=== PATIENT | male | born 1980 | race Caucasian/White ===

== ENCOUNTER 2025-04-16 15:46 | Outpatient (AMB) | payer OTHER, SELFPAY ==
--- NOTE | 2025-04-16 15:58 | MHC.OFFVIS ---
Vital Signs 04/16/25 16:11 Height 5 ft 8.9 in Weight 260 lb BMI 38.5 BP 145/89 H Intake Visit Reasons: ENP: Right arm pain/Right leg pain HPI Comments Details: The patient is a 45-year-old male presenting with musculoskeletal pain. The pain originated about a month ago, localized on the right side, from the hip and leg extending to the shoulder and later affecting the neck and back. The pain remained constant and was exacerbated by prolonged activity, such as working for more than two to three hours, causing pronounced discomfort in the right arm and palm. Initial investigations included an x-ray, leading to discussions of arthritis, with physiotherapy commenced. Diagnosis considerations involve further exploration of arthritis given the symptoms and a family history review which was negative. Relief from prescribed medications has been partial. Blood pressure readings indicated elevated levels on two isolated occasions but were not associated with the presenting complaint. Review of Systems Const Details: - Musculoskeletal: Reports pain in right hip, leg, shoulder, neck, and back; described as a constant ache exacerbated by prolonged activity. - Dermatologic: Denies any rash. - Neurologic: Denies weakness. - Cardiovascular: Incidental elevated blood pressure noted on separate occasions. Physical Exam Neuro Other: Mental Status: Alert and oriented to person, place, and time. Normal attention. Normal spontaneous speech, fluency, and comprehension. No obvious issues with mood and memory. Affect is appropriate. Cranial Nerves: CN II: Visual pereira full to confrontation, visual acuity intact. CN III, IV, : Pupils equal, round, reactive to light and accommodation. Extraocular movements are normal. CN V: Facial sensation is normal. CN VII: Facial movements symmetrical. CN VIII: Hearing intact to bedside conversation is normal. CN IX, X: Palate elevates symmetrically. CN XI: Shoulder shrug and head turn symmetrical. CN XII: Tongue midline without atrophy or fasciculations. Deep tendon reflexes are 1+. Feet are slightly flattened. Extrapyramidal: Full facial expressions and blinking. No rigidity. Movements are appropriate with no tremor or abnormality. Speech: Normal; no dysarthria or tremor. Assessment & Plan Assessment & Plan (1) Arm pain: Code(s): M79.603 - Pain in arm, unspecified Category: Medical Qualifiers: Laterality: right Qualified Code(s): M79.601 - Pain in right arm (2) Leg pain: Code(s): M79.606 - Pain in leg, unspecified Category: Medical Qualifiers: Laterality: right Qualified Code(s): M79.604 - Pain in right leg Plan Impression recommendations: 45 years old man with no significant past medical history other than obese, especially with no previous history of significant injury or arthritis, was having right arm and leg pain mostly around joints and also neck pain and back pain. There was no weakness. Examination was nonfocal. Likely etiology was musculoskeletal. Recommendations: 1. He is advised to bring reports of his x-rays done at [facility] 2. EMG nerve conduction study to rule out any possibility of radiculopathy 3. Sed rate, rheumatoid factor, double-stranded DNA, and Lyme serology and 4. Nonsteroidal anti-inflammatory agents such as naproxen 500 mg once or twice a day as needed for few days Orders: Orders NE nerve conduction velocity Today M79.601 - Pain in right arm, M79.604 - Pain in right leg Erythrocyte Sedimentation Rate Today M79.601 - Pain in right arm, M79.604 - Pain in right leg Lyme IgG/IgM w/reflex to WB Today M79.601 - Pain in right arm, M79.604 - Pain in right leg NE electromyogram (EMG) Today M79.601 - Pain in right arm, M79.604 - Pain in right leg Rheumatoid Factor Today M79.601 - Pain in right arm, M79.604 - Pain in right leg Anti DNA DS Antibody Today M79.601 - Pain in right arm, M79.604 - Pain in right leg Creatine Kinase Total Today M79.601 - Pain in right arm, M79.604 - Pain in right leg Medications: New naproxen 500 mg PO BID PRN 60 tabs 0RF pain Coding Level of Care Code New Pt Level 4 (38325) Diagnoses Pain of right upper extremity M79.601 Laterality: right Pain of right lower extremity M79.604 Laterality: right
[2025-04-16 16:11] VITALS: BP 145/89; BMI 38.5
== END 2025-04-16 16:14 | disposition home or self-care (01) ==
LOC: HO.HSM 15:47
PROVIDERS: PCP Internal Medicine; Visit Provider Psychiatry & Neurology Neurology
DX: M79.601 Pain in right arm (principal); M79.604 Pain in right leg
CPT/HCPCS: 99204

== ENCOUNTER 2025-04-16 15:46 | Outpatient (REF) | payer OTHER, SELFPAY ==
[2025-04-17 06:28] LABS: Lyme Abs Screen <0.90 index
== END 2025-04-16 15:47 | disposition home or self-care (01) ==
LOC: HO.LAB 15:46
PROVIDERS: Visit Provider Psychiatry & Neurology Neurology
DX: M79.601 Pain in right arm (principal); M79.604 Pain in right leg
CPT/HCPCS: 36415; 82550; 85652; 86225; 86431; 86617; 86618

== ENCOUNTER 2025-04-29 08:57 | Outpatient (REF) | payer OTHER, SELFPAY ==
--- NOTE | 2025-04-29 08:58 | EMG_ITS ---
Chief complaint: Right arm and right hip pain Reason for referral: pain in right upper and right hip pain Referred by:?Dr Moore Procedure done: Right uppper and right lower extremities NCS/EMG Right median and ulnar motor and sensory studies were performed right radial sensory and median and lateral antecubital brachial sensory studies were performed. Right tibial and peroneal motor studies were performed in right superficial peroneal and sural sensory studies were performed tibial H-reflex was obtained an EMG needle examination was performed for upper and lower paraspinals. Impression: This study did not reveal any significant abnormality. There was no sign of generalized neuropathy or a radiculopathy. [facility]
== END 2025-04-29 08:58 | disposition home or self-care (01) ==
LOC: HO.NEURO 08:57
PROVIDERS: Visit Provider Psychiatry & Neurology Neurology
DX: M79.601 Pain in right arm (principal); M79.604 Pain in right leg
CPT/HCPCS: 95886; 95913

== ENCOUNTER → 2025-04-29 08:58 | Outpatient (BNV) | payer OTHER, SELFPAY | PROVIDERS: Visit Provider Psychiatry & Neurology Neurology | DX: M79.601 Pain in right arm (principal); M79.604 Pain in right leg | CPT/HCPCS: 95886; 95913 ==

== ENCOUNTER 2025-06-26 10:45 | Outpatient (REF) | payer OTHER, SELFPAY ==
[2025-06-26 19:00] LABS: Baso%MD 0.7 %; Eos%MD 2.8 %; Hematocrit 43.8 % (42.0-52.0); Hemoglobin 14.5 g/dl (14.0-18.0); IG%MD 1.1 %; Lymph%MD 29.6 %; Mean Corpuscular HGB Conc 33.1 g/dl (31.0-36.0); Mean Corpuscular Hemoglobin 28.0 pg (27.0-33.0); Mean Corpuscular Volume 84.7 fL (80.0-98.0); Mono%MD 8.4 %; NRBC Abs Auto 0.000 X10*3/uL (0.0-0.012); NRBC Pct Auto 0.0 /100WBC (0.0-0.2); Neut%MD 57.4 %; Platelet Count 184 X10*3/uL (160-400); Red Blood Count 5.17 X10*6/uL (4.60-5.80); White Blood Count 7.2 X10*3/uL (4.8-10.8)
[2025-06-26 19:23] LABS: Protein/Creatinine Ratio, Ur 0.05 (<0.2); Total Protein Urine Random 8 mg/dL (<12)
[2025-06-26 19:35] LABS: Appearance Urine Clear; Glucose Urine UA Negative (Negative); PH 5.5 (5.0-9.0); Specific Gravity - Urine 1.020 (1.005-1.025)
[2025-06-26 19:58] LABS: Alanine Aminotransferase 41 U/L (0-40); Albumin Level 4.9 g/dL (3.5-5.0); Alkaline Phosphatase 61 U/L (39-117); Anion Gap 13 (12-20); Aspartate Amino Transferase 31 U/L (5-37); Blood Urea Nitrogen 17 mg/dL (9-16); Calcium 10.0 mg/dL (8.4-10.2); Carbon Dioxide 25 mmol/L (22-29); Chloride 104 mmol/L (96-108); Estimated Glomerular Filt Rate > 60; Potassium 3.9 mmol/L (3.3-5.1); Sodium 138 mmol/L (135-145); Total Protein 7.6 g/dL (6.5-8.0)
[2025-06-26 20:13] LABS: Thyroid Stimulating Hormone 1.43 uIU/mL (0.32-4.0)
[2025-06-26 22:19] LABS: Eosinophils Absolute Manual 0.1 X10*3/uL (0.0-0.4); Eosinophils Percent Manual 1 % (0-4); Lymphocytes Absolute Manual 2.4 X10*3/uL (1.2-4.9); Lymphocytes Percent Manual 34 % (20-40); Monocytes Absolute Manual 0.4 X10*3/uL (0.1-1.2); Monocytes Percent Manual 6 % (2-11); Neutrophils Percent Manual 59 % (45-73)
[2025-06-26 22:20] LABS: Burr Cells 1+ (0-2) /OIF; Macrocytosis 1+ (5-14) /OIF; RBC Morphology NOTED
[2025-06-26 22:21] LABS: Band Neutrophils Percent 0 % (3-5); Neutrophils Absolute Manual 4.2 X10*3/uL (2.0-8.3)
[2025-06-27 18:59] LABS: Thyroglobulin Antibodies <1 IU/mL (< or = 1)
[2025-06-27 21:44] LABS: Anti Nuclear Antibody Pattern Nuclear, Speckled; Anti Nuclear Antibody Screen POSITIVE (NEGATIVE); Anti Nuclear Antibody Titer 1:40 titer
== END 2025-06-26 10:46 | disposition home or self-care (01) ==
LOC: HO.HKASLDS 10:45
PROVIDERS: PCP Internal Medicine; Visit Provider Student in an Organized Health Care Education/Training Program
DX: M79.18 Myalgia, other site (principal); M32.9 Systemic lupus erythematosus, unspecified; R76.0 Raised antibody titer; M79.601 Pain in right arm; M79.604 Pain in right leg
CPT/HCPCS: 36415; 80053; 81003; 82550; 82570; 84156; 84443; 85007; 85027; 85652; 86038; 86039; 86140; 86160; 86200; 86376; 86800

== ENCOUNTER 2025-06-26 10:45 | Outpatient (AMB) | payer OTHER, SELFPAY ==
[2025-06-26 10:49] VITALS: BP 132/64; PULSE 79; O2SAT 98; BMI 42.7
--- NOTE | 2025-06-26 10:49 | MHC.OFFVIS ---
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 Moore, Neurology, for pain in upper and lower right side/High DS DNA titer. Patient states he has pain in arm is progressively getting worse. 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 Patient reports that for the past 3-4 months, he has been having right arm pain, shoulder pain, intermittent left shoulder pain, intermittent chest pain, and pain in the hands. The pain in his shoulders is more so in the muscle rather than the joint cavity. Patient reports that he has pain more so in the palms that in the joints. He reports that the pain is more muscular in nature especially prominent when he does some activity or strenuous exercise. He denies muscle weakness. He reports morning stiffness of about 10-15 minutes in the palms right arm shoulders and chest. He has noticed some swelling of his fingers however has not noticed any active synovitis. On review of systems, he denies photosensitivity , oral ulcers , skin rashes,nasal ulcers, Raynaud's phenomenon, blood clots, dry eyes dry mouth. 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 which is helping his muscular pain in the right arm he also takes naproxen as needed Patient reports that he has poor sleep, he goes to bed for 8 hours however his total sleep duration is only 5 hours. He also states that he wakes up during the pain. He has reported his noticed him snoring has not had a sleep study done No known family history of autoimmune disease Blood work recently shows negative RF and an elevated dsDNA of 13 Patient had bilateral shoulder x-rays done which showed mild OA of the shoulders, lumbar spine x-ray showed degenerative arthritis . these x-rays were done at [facility] Vital signs reviewed Physical Examination CONSTITUITIONAL Patient alert and cooperative. Well appearing and in no apparent painful distress HEENT Conjunctiva and sclera clear. No lymphadenopathy. CHEST/RESPIRATORY SYSTEM Normal respiratory effort and able to speak in complete sentences. Clear to auscultation bilaterally. No crackles, rales, rhonchi, wheezes heard. CARDIAC SYSTEM Regular rate and rhythm. S1 and S2 heard no murmurs. Radial pulses intact bilaterally MSK Hands Right Hand: Able to make a fist. No swelling or tenderness to palpation of the MCPs, PIPs or DIPs. No deformities noted. Left Hand: Able to make a fist. No swelling or tenderness to palpation of the MCPs, PIPs or DIPs. No deformities noted. Wrists Right Wrist: Full ROM to flexion and extension. No swelling or TTP Left Wrist: Full ROM to flexion and extension. No swelling or TTP Elbows Right Elbow: Full ROM. No swelling or TTP. No TTP of the medial epicondyle. No TTP of the lateral epicondyle Left Elbow: Full ROM. No swelling or TTP. No TTP of the medial epicondyle. No TTP of the lateral epicondyle Shoulders Right shoulder: Full ROM. No swelling noted. No TTP of the AC joint. No TTP of the subacromial bursa. No TTP of the posterior shoulder Left shoulder: Full ROM. No swelling noted. No TTP of the AC joint. No TTP of the subacromial bursa. No TTP of the posterior shoulder ON SQUEEZING THE DELTOID MUSCLE AND THE MUSCLES OF THE ARM AND FOREARM, HE DOES STATE THERE IS TENDERNESS Hips Right hip: Good ROM. No pain elicited with hip flexion/internal rotation/external rotation Left hip: Good ROM. No pain elicited with hip flexion/internal rotation/external rotation Hip bursa: No tenderness to palpation bilaterally Knees Right knee: Full ROM. No swelling noted. No TTP of the knee joint line. No TTP of pes anserine bursa Left knee: Full ROM. No swelling noted. No TTP of the knee joint line. No TTP of pes anserine bursa. Ankles Right ankle: Good ankle dorsiflexion and plantar flexion. No swelling. No TTP of the ankle joint Left ankle: Good ankle dorsiflexion and plantar flexion. No swelling. No TTP of the ankle joint Feet Right foot: Negative squeeze test Left foot: Negative squeeze test Tender points? Fibromyalgia tender points positive SKIN No rashes [facility] History (Updated 06/26/25 @ 10:57 by Samantha Baryr [facility]) History of kidney surgery Social History Alcohol intake: current Alcohol intake frequency: holidays/special occasions only Patient Tobacco Use Status: Never used Tobacco Physical Exam Vital Signs: BMI result Body Mass Index 42.7 Assessment & Plan Assessment & Plan (1) Muscle pain: Code(s): M79.10 - Myalgia, unspecified site Category: Medical Plan: 45-YEAR-OLD MALE WITH NO SIGNIFICANT PAST MEDICAL HISTORY PRESENTING FOR THE EVALUATION of right arm pain. Patient reports pain is more so in the muscle rather than the joint cavity of the shoulder. He also has intermittent pain in his left shoulder, in his chest, in bilateral palms and right leg. Workup done at the neurologist office revealed elevated dsDNA antibody however clinically and by history has no stigmata of SLE. I will complete the workup including DEMARIO titer and pattern, DEMARIO subsets, C3-C4,UPCR inflammatory markers ESR CRP, CCP, CK level, AND THYROID FUNCTION STUDIES I WILL ALSO OBTAIN HAND X-RAYS . This patient's history and physical exam also exhibits fibromyalgia. I explained the patient extensively regarding fibromyalgia and provided patient education. I will refer him to PT for his pain in the shoulders and OT pain in the hands. I will also prescribe him flexeril 5mg daily to help relieve his muscle tightness and pain I will also refer him to sleep Medicine to evaluate for sleep apnea Follow up in 3 weeks for discussion of results. (2) Right arm pain: Code(s): M79.601 - Pain in right arm Category: Medical (3) Right leg pain: Code(s): M79.604 - Pain in right leg Category: Medical (4) Fibromyalgia: Code(s): M79.7 - Fibromyalgia Category: Medical (5) Leg pain: Code(s): M79.606 - Pain in leg, unspecified Category: Medical Qualifiers: Laterality: right Qualified Code(s): M79.604 - Pain in right leg (6) Arm pain: Code(s): M79.603 - Pain in arm, unspecified Category: Medical Qualifiers: Laterality: right Qualified Code(s): M79.601 - Pain in right arm (7) Fibromyalgia: Code(s): M79.7 - Fibromyalgia Category: Medical Plan 45-YEAR-OLD MALE WITH NO SIGNIFICANT PAST MEDICAL HISTORY PRESENTING FOR THE EVALUATION of right arm pain. Patient reports pain is more so in the muscle rather than the joint cavity of the shoulder. He also has intermittent pain in his left shoulder, in his chest, in bilateral palms and right leg. Workup done at the neurologist office revealed elevated dsDNA antibody however clinically and by history has no stigmata of SLE. I will complete the workup including DEMARIO titer and pattern, DEMARIO subsets, C3-C4,UPCR inflammatory markers ESR CRP, CCP, CK level, AND THYROID FUNCTION STUDIES I WILL ALSO OBTAIN HAND X-RAYS . This patient's history and physical exam also exhibits fibromyalgia. I explained the patient extensively regarding fibromyalgia and provided patient education. I will refer him to PT for his pain in the shoulders and OT pain in the hands. I will also prescribe him flexeril 5mg daily to help relieve his muscle tightness and pain I will also refer him to sleep Medicine to evaluate for sleep apnea Follow up in 3 weeks for discussion of results. Orders: Orders Erythrocyte Sedimentation Rate Today M32.9 - Systemic lupus erythematosus, unspecified Complement C4 Today M32.9 - Systemic lupus erythematosus, unspecified UA and rflx microscopic Today M32.9 - Systemic lupus erythematosus, unspecified DEMARIO Reflex Titer and Pattern Today M32.9 - Systemic lupus erythematosus, unspecified Thyroid Peroxidase Antibodies Today R76.0 - Raised antibody titer XR Hand Pedro 2V Today M79.601 - Pain in right arm, M79.604 - Pain in right leg PT Evaluation and Treatment Today M79.601 - Pain in right arm, M79.604 - Pain in right leg OT Evaluation and Treatment Today M79.601 - Pain in right arm, M79.604 - Pain in right leg Complete Blood Count Man Dif Today M32.9 - Systemic lupus erythematosus, unspecified Comprehensive Met. Panel Today M32.9 - Systemic lupus erythematosus, unspecified C Reactive Protein Today M32.9 - Systemic lupus erythematosus, unspecified Complement C3 Today M32.9 - Systemic lupus erythematosus, unspecified Protein Creatinine Ratio, Ur Today M32.9 - Systemic lupus erythematosus, unspecified Cyclic Citrullinated Peptide Today R76.0 - Raised antibody titer Thyroid Stimulating Hormone Today R76.0 - Raised antibody titer Thyroglobulin Antibodies Today R76.0 - Raised antibody titer Creatine Kinase Total Today M79.10 - Myalgia, unspecified site, M79.601 - Pain in right arm, M79.604 - Pain in right leg, M79.7 - Fibromyalgia Referrals Sleep Medicine Referral M79.7 - Fibromyalgia Medications: New cyclobenzaprine 5 mg PO BEDTIME 30 tabs 2RF Coding Level of Care Code New Pt Level 5 (46877) Diagnoses Muscle pain M79.10 Right arm pain M79.601 Right leg pain M79.604 Fibromyalgia M79.7 Pain of right lower extremity M79.604 Laterality: right Pain of right upper extremity M79.601 Laterality: right
== END 2025-06-26 11:39 | disposition home or self-care (01) ==
LOC: HO.RHES 10:45
PROVIDERS: PCP Internal Medicine; Visit Provider Student in an Organized Health Care Education/Training Program
DX: M79.601 Pain in right arm (principal); M79.604 Pain in right leg; M79.7 Fibromyalgia
CPT/HCPCS: 99204

== ENCOUNTER 2025-07-01 14:51 | Outpatient (AMB) | payer OTHER, SELFPAY ==
--- NOTE | 2025-07-01 15:01 | MHC.OFFVIS ---
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 Poor sleep, he goes to bed for 8 hours however his total sleep duration is only 5 hours. He also states that he wakes up during the pain. He has reported his noticed him snoring has not had a sleep study done. Hard time falling asleep. Snoring/apnea. Goes to bed at 11pm-12am, wakes up at 4-5am. Wakes up 1-2times a night. No naps/headaches. No history of sleep studies. Accompanied by: Self / Same As Patient Allergies No Known Allergies Allergy (Verified 07/01/25 15:06) HPI Comments Details: 45 year old male is referred to us for an evaluation of CINTIA per his Principal Biostatistician. 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 He falls asleep at 11pm, wakes up at 5am for the bathroom, continues to have fragmented sleep patterns for years now. He snores loudly, gasps for air and has pauses per his . He has bruxism, denies wearing a mouth guard and will toss and turn all night long. He naps 2-2.5 hours on the weekends. He has bilateral joint pain, weakness and tremors in shoulders and upper extremities, hips, knees and ankles. He has neck pain with rotation of the neck. He has fibromyalgia takes 300mg of Gabapentin and 500mg of Naproxen, he is being followed by his Principal Biostatistician. Memory, mood are stable. Diet is good, he has a strict diet, meal preps, and drinks lots of work. When traveling for work eats poorly, fats and carbs. Denies morning headaches, RLS symptoms, numbness, tinging, pins, needles in feet, calves, GERD, parasomnias. Denies smoking, and drinks alcohol socially. FH is negative. [facility] Surgical History History of kidney surgery Social History Alcohol intake: current Alcohol intake frequency: holidays/special occasions only Patient Tobacco Use Status: Never used Tobacco Physical Exam Vital Signs: Last Vital Signs Pulse 78 07/01/25 15:02 BP 140/90 H 07/01/25 15:02 Pulse Ox 98 07/01/25 15:02 Oxygen Delivery Method Room Air 07/01/25 15:02 BMI result Body Mass Index 42.9 Const General: cooperative, comfortable and no acute distress Orientation/consciousness: patient oriented x3 HEENT Face and sinus: Yes face symmetric Teeth and gingiva: other (mallampti score is 4) Eyes Pupils: Equal, round and reactive pupils present Neck Neck: Yes full ROM Resp Effort & Inspection: normal respiratory effort and able to speak in complete sentences Neuro Other: limited rom on lateral rotation of neck- cervicalgia General: patient oriented x3 and moves all extremities Cranial nerves: Yes Equal, round and reactive pupils present, Yes Normal accommodation reflex present, Yes Normal facial strength present, Yes Midline tongue present, Yes Ability to bilaterally rotate head present and Yes Ability to bilaterally elevate shoulders present Cognition (Neuro): normal cognition Gait exam (Neuro): Normal gait present Motor exam (neuro): 5/5 motor strength present throughout and Normal motor muscle tone present throughout Psych Appearance: grossly normal Speech and movement: Normal speech and movement present Attitude: cooperative Thought process: Normal thought process present Results Reviewed Results Reviewed: Right median and ulnar motor and sensory studies were performed right radial sensory and median and lateral antecubital brachial sensory studies were performed. Right tibial and peroneal motor studies were performed in right superficial peroneal and sural sensory studies were performed tibial H-reflex was obtained an EMG needle examination was performed for upper and lower paraspinals. Impression: This study did not reveal any significant abnormality. There was no sign of generalized neuropathy or a radiculopathy. Labs reviewed DEMARIO+ ESR elevated Assessment & Plan Assessment & Plan (1) Excessive daytime sleepiness: Code(s): G47.19 - Other hypersomnia Category: Medical (2) Loud snoring: Code(s): R06.83 - Snoring Category: Medical (3) Bruxism, sleep-related: Code(s): G47.63 - Sleep related bruxism Category: Medical Plan HST r/o cintia Excessive daytime sleepiness Labs r/o deficiencies. f/u in 3 months Orders: Orders RT home sleep study Today G47.19 - Other hypersomnia Patient Instructions: f/u with Rheumatology Sleep Hygiene provided: set a scheduled bedtime and wake time to help regulate the circadian rhythm and balance the release of pituitary hormones. Sleep in a dark room, temperatures below 68 degrees, and no devices n bed. Limit caffeinated products 6 hours prior to bed, and limit fluids 2-4 hours prior to bed. Gentle night yoga, diffusing essential oils, and playing soft music can be relaxing. Coding Level of Care Code New Pt Level 4 (83157) Diagnoses Excessive daytime sleepiness G47.19 Loud snoring R06.83 Bruxism, sleep-related G47.63
[2025-07-01 15:02] VITALS: BP 140/90; PULSE 78; O2SAT 98; BMI 42.9
== END 2025-07-01 15:37 | disposition home or self-care (01) ==
LOC: HO.HSMS 14:51
PROVIDERS: PCP Internal Medicine; Visit Provider Physician Assistant Medical
DX: G47.19 Other hypersomnia (principal); R06.83 Snoring; G47.63 Sleep related bruxism
CPT/HCPCS: 99204

== ENCOUNTER 2025-07-18 08:52 | Outpatient (REF) | payer OTHER, SELFPAY ==
--- NOTE | ~2025-07-18 | XR_ITS ---
EXAMINATION: XR HAND 3 VIEWS BILATERAL HISTORY: M79.601 - Pain in right arm COMPARISON: There are no prior studies available for comparison. FINDINGS: Six views of the bilateral hands are submitted. Osseous mineralization is normal. There is no fracture or dislocation. The joint spaces are preserved. The soft tissues are unremarkable. XR/XR Hand Bilat min 3v IMPRESSION: Unremarkable examination of the bilateral hands. Electronically signed by: Kamran Ortega MD 07/18/2025 09:47 AM EST
== END 2025-07-18 08:53 | disposition home or self-care (01) ==
LOC: HO.XRAY 08:52
PROVIDERS: Visit Provider Student in an Organized Health Care Education/Training Program
DX: M79.601 Pain in right arm (principal)
CPT/HCPCS: 73130

== ENCOUNTER → 2025-07-18 08:56 | Outpatient (BNV) | payer OTHER, SELFPAY | PROVIDERS: Visit Provider Radiology Diagnostic Radiology | DX: M79.601 Pain in right arm (principal) | CPT/HCPCS: 73130 ==

== ENCOUNTER 2025-07-22 09:52 | Outpatient (AMB) | payer OTHER, SELFPAY ==
[2025-07-22 09:53] VITALS: BP 132/72; PULSE 69; O2SAT 98; BMI 43.3
--- NOTE | 2025-07-22 09:53 | A.OFFVIS_ITS ---
Vital Signs 07/22/25 09:53 Height 5 ft 8.9 in Weight 292 lb 1.8 oz BMI 43.3 BP 132/72 Blood Pressure Location Rt brachial Position Sitting Pulse 69 Pulse Source Pulse Oximeter Pulse Oximetry (%) 98 Oxygen Delivery Method Room Air Intake Visit Reasons: 3 weeks Intake Note: Patient presents for follow up on muscle pain/fibromyalgia, High DS DNA titer, lab review. 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 Today: He states he has ongoing right shoulder pain in the joint today which radiates down his right arm. On blood work he had a low positive DEMARIO 1:40 , DsDNA 13 and CCP 21 and slight elevation of inflammatory markers ON history and physical exam, he had no stigmata of SLE, scleroderma or other connective tissue diseases. He had no signs of inflammatory arthritis like rheumatoid arthritis. His hand x-rays showed no signs of erosions or signs of inflammatory arthritis. He had a normal creatinine kinase level. He reports that his joint pain is controlled with the naproxen 500 mg twice a day, however as he tries to stop the pain killer the pain returns. Initial History: Patient reports that for the past 3-4 months, he has been having right arm pain, shoulder pain, intermittent left shoulder pain, intermittent chest pain, and pain in the hands. The pain in his shoulders is more so in the muscle rather than the joint cavity. Patient reports that he has pain more so in the palms that in the joints. He reports that the pain is more muscular in nature especially prominent when he does some activity or strenuous exercise. He denies muscle weakness. He reports morning stiffness of about 10-15 minutes in the palms right arm shoulders and chest. He has noticed some swelling of his fingers however has not noticed any active synovitis. On review of systems, he denies photosensitivity , oral ulcers , skin rashes,nasal ulcers, Raynaud's phenomenon, blood clots, dry eyes dry mouth. 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 which is helping his muscular pain in the right arm he also takes naproxen 500mg bid as needed Patient reports that he has poor sleep, he goes to bed for 8 hours however his total sleep duration is only 5 hours. He also states that he wakes up during the pain. He has reported his noticed him snoring has not had a sleep study done No known family history of autoimmune disease Patient had bilateral shoulder x-rays done which showed mild OA of the shoulders, lumbar spine x-ray showed degenerative arthritis . these x-rays were done at [facility] Vital signs reviewed Physical Examination CONSTITUITIONAL Patient alert and cooperative. Well appearing and in no apparent painful distress HEENT Conjunctiva and sclera clear. CHEST/RESPIRATORY SYSTEM Normal respiratory effort and able to speak in complete sentences. CARDIAC SYSTEM Regular rate and rhythm. MSK Hands * Right Hand: Able to make a fist. No swelling or tenderness to palpation of the MCPs, PIPs or DIPs. No deformities noted. * Left Hand: Able to make a fist. No swelling or tenderness to palpation of the MCPs, PIPs or DIPs. * PATIENT HAD POPPING AND LOCKING OF THE 3RD AND 4TH DIGITS-compatible with trigger finger * Wrists * Right Wrist: Full ROM to flexion and extension. No swelling or TTP * Left Wrist: Full ROM to flexion and extension. No swelling or TTP Elbows * Right Elbow: Full ROM. No swelling or TTP. No TTP of the medial epicondyle. No TTP of the lateral epicondyle * Left Elbow: Full ROM. No swelling or TTP. No TTP of the medial epicondyle. No TTP of the lateral epicondyle Shoulders * Right shoulder: Full ROM. No swelling noted. No TTP of the AC joint. No TTP of the subacromial bursa. No TTP of the posterior shoulder * Left shoulder: Full ROM. No swelling noted. No TTP of the AC joint. No TTP of the subacromial bursa. No TTP of the posterior shoulder ON SQUEEZING THE DELTOID MUSCLE AND THE MUSCLES OF THE ARM AND FOREARM, HE DOES STATE THERE IS TENDERNESS Hips * Right hip: Good ROM. No pain elicited with hip flexion/internal rotation/external rotation * Left hip: Good ROM. No pain elicited with hip flexion/internal rotation/external rotation Hip bursa: No tenderness to palpation bilaterally Knees * Right knee: Full ROM. No swelling noted. No TTP of the knee joint line. No TTP of pes anserine bursa * Left knee: Full ROM. No swelling noted. No TTP of the knee joint line. No TTP of pes anserine bursa. Ankles * Right ankle: Good ankle dorsiflexion and plantar flexion. No swelling. No TTP of the ankle joint Tender points? * Fibromyalgia tender points positive SKIN No rashes PFSH Surgical History History of kidney surgery Social History Alcohol intake: current Alcohol intake frequency: holidays/special occasions only Patient Tobacco Use Status: Never used Tobacco Physical Exam Vital Signs: Last Vital Signs Pulse 69 07/22/25 09:53 BP 132/72 07/22/25 09:53 Pulse Ox 98 07/22/25 09:53 Oxygen Delivery Method Room Air 07/22/25 09:53 BMI result Body Mass Index 43.3 Assessment & Plan Assessment & Plan (1) Arm pain: Code(s): M79.603 - Pain in arm, unspecified Category: Medical Qualifiers: Laterality: right Qualified Code(s): M79.601 - Pain in right arm (2) Trigger finger: Code(s): M65.30 - Trigger finger, unspecified finger Category: Medical Qualifiers: Trigger finger location: middle finger Laterality: left Qualified Code(s): M65.332 - Trigger finger, left middle finger (3) Osteoarthritis of shoulder: Code(s): M19.019 - Primary osteoarthritis, unspecified shoulder Category: Medical Qualifiers: Osteoarthritis type: primary Laterality: bilateral Qualified Code(s): M19.011 - Primary osteoarthritis, right shoulder; M19.012 - Primary osteoarthritis, left shoulder Plan 45-year-old male is here for the follow up of his right shoulder and arm pain. He continues to have right shoulder pain which is controlled with naproxen 500 mg b.i.d. as needed. However he states as he tries to stop the pain killer, his right shoulder pain comes back. He states that the pain radiates into the right arm. His blood work was notable for a very low positive DEMARIO 1:40, DSDNA 6 however his clinical features and exam does not reveal any stigmata of SLE, scleroderma or other connective tissue disease. He had negative RF with a low positive CCP of 21, hand x-rays did not show any evidence of inflammatory arthritis, again low suspicion for rheumatoid arthritis and other seronegative inflammatory arthritis. Most likely his right shoulder pain is due to wear and tear/degenerative arthritis. I will order an MRI of the right shoulder to further explore the cause of his right shoulder pain to rule out tendon/ligament/muscle disruption. Patient is also exhibiting left 3rd and 4th trigger finger, with exam showing popping and locking of these fingers. I discuss management options with him including OT for exercises, orthopedic surgery for trigger finger cortisone injection versus surgery. I will refer him to orthopedic surgery to explore these options Depending on the results of the MRI, we will discuss further management. I will call the patient to discuss the result once MRI results are back and then we will discuss further intervention from there. In the interim follow-up tentatively scheduled for 6 months. Orders: Orders MR shoulder RT wo con Today M79.601 - Pain in right arm Referrals Orthopedics Referral M65.30 - Trigger finger, unspecified finger Coding Level of Care Code Est Pt Level 4 (33192) Diagnoses Pain of right upper extremity M79.601 Laterality: right Trigger middle finger of left hand M65.332 Trigger finger location: middle finger Laterality: left Primary osteoarthritis of both shoulders M19.011; M19.012 Osteoarthritis type: primary Laterality: bilateral
== END 2025-07-22 10:25 | disposition home or self-care (01) ==
LOC: HO.RHES 09:52
PROVIDERS: PCP Internal Medicine; Visit Provider Student in an Organized Health Care Education/Training Program
DX: M79.601 Pain in right arm (principal); M65.332 Trigger finger, left middle finger; M19.011 Primary osteoarthritis, right shoulder; M19.012 Primary osteoarthritis, left shoulder
CPT/HCPCS: 99214